=== PATIENT | male | born 1990 | race Caucasian/White ===

== ENCOUNTER → 2018-05-07 | Outpatient (CLI) | payer OTHER | LOC: M.MRI 04-09 12:47 | DX: M47.812 Spondylosis without myelopathy or radiculopathy, cervical region (principal); M48.02 Spinal stenosis, cervical region; M50.222 Other cervical disc displacement at C5-C6 level; R51 Headache; M25.78 Osteophyte, vertebrae ==

== ENCOUNTER → 2021-02-01 | Outpatient (CLI) | payer OTHER | LOC: M.ULTRA 13:21 | PROVIDERS: ATTEND Internal Medicine | DX: K62.5 Hemorrhage of anus and rectum (principal); R10.31 Right lower quadrant pain ==